=== PATIENT | female | born 1970 | race Two or more races ===

== ENCOUNTER 2020-11-15 09:27 | Day surgery (SDC) | payer BC, SELFPAY ==
--- NOTE | 2020-11-14 12:26 | HP.PCM_ITS ---
History and Physical Date of Admission: 11/15/20 Judy Mo MD Physician Specialty: FLASHER ADJUSTER H&P ? Signed Encounter Date: 11/09/2020 Expand AllCollapse All Expand All by Default Hide copied text Hover for details Pre-Op History and Physical- virtual visit on zoom platform. ? HPI: The patient is a 50 year old female presenting for discussion of abnormal uterine bleeding. Patient had an endometrial biopsy which was benign. Previously patient stated she would like to proceed with a hysteroscopy, D&C, endometrial ablation but today is now considering other options. Patient is considering a Mirena IUD versus the ablation versus canceling her surgery and performing a hysterectomy. Patient had multiple questions today that were answered to the best of my ability. We reviewed Ultrasound findings- likely adenomyosis and thickened cystic endometrium. EMB sample Benign. At this time decision was that we will keep her on the schedule and she will notify me of how she would like to proceed from here on out. ? She is scheduled for Hysteroscopy D&C, Possible asaf ablation possible mirena IUD insertion on 11/15/20. Procedure discussed along with risks, benefits and complications. Other alternatives discussed for management. Consent form signed? No. Will sign day of surgery. ? ? PAST MEDICAL HISTORY PAST MEDICAL HISTORY Diagnosis Date ? Varicose veins of other sites 2005 ? s/p laser ablation in [place] ? Vitamin D deficiency ? ? takes MVI- Centrum kids( cannot tolerate oral iron( ? ? PAST SURGICAL HISTORY PAST SURGICAL HISTORY Procedure Laterality Date ? PAST SURGICAL HISTORY OF ? 08/2005 ? endovascular ablation RLE ? ? ? CURRENT MEDICATIONS Current Outpatient Medications Medication Sig Dispense Refill ? norethindrone (AYGESTIN) 5 mg tablet Take 1 tab PO TID until bleeding stops then take 1 tab BID x 3 days then daily x 7 days. 30 tablet 0 ? estradiol 10 mcg vaginal suppository starter pack (IMVEXXY) Insert one insert (10 mcg) vaginally once daily during Weeks 1 and 2, THEN twice weekly during Week 3 and thereafter 18 Suppository 0 ? estradiol (IMVEXXY MAINTENANCE PACK) 10 mcg inst Use 1 Suppository vaginally two times a week. 1 Box 5 ? iv contrast (will be provided with radiology test) CT ABD/PEL -Inject, intravenously, once for 1 dose.No IV access, insert saline lock prior to the beginning of sedation, infusion, injection of imaging exam. Discontinue saline lock post exam. If Pt. has a central line or IVAD, may access for administration according to line specific nursing protocol. Once exam is complete flush line and de-access according to line specific nursing protocol in the CT contrast administration guidelines link. 1 Each 0 ? enteric contrast (will be provided with radiology test) For CT ABD/PEL W IVCON Routine order Administer, As Directed One Time Only, via Oral, Rectal, both Oral and Rectal, Enteric Tube, Stoma or Indwelling Catheter, Enteric Contrast as designated per enteric contrast guidelines 1 Each 0 ? sod picosulf-mag ox-citric ac (CLENPIQ) 10 mg-3.5 gram -12 gram/160 mL soln Take 1 Package by mouth as directed. Take as directed per instruction sheet 1 Bottle 0 ? [id number] TAB Take by mouth. With iron ? ? 0 ? miscellaneous medical supply(COMPRESSION STOCKINGS) 20-30 mmHg knee high, wear as directed 4 4 ? No current facility-administered medications for this visit. ? ? ALLERGIES: Patient has no known allergies. ? PERSONAL HISTORY: SOCIAL HISTORY Social History ? Tobacco Use ? Smoking status: Never Smoker ? Smokeless tobacco: Never Used Substance Use Topics ? Alcohol use: No ? Drug use: No ? FAMILY HISTORY: FAMILY HISTORY FAMILY HISTORY Problem Relation Age of Onset ? other (cancer lung [Other]) Father ? ? d age 46- small cell ca- non smoker ? other (healthy [Other]) Mother ? ? age 67 ? Breast Cancer Other ? ? paternal cousin ? ? REVIEW OF SYMPTOMS: Daily uterine cramping- persistent since EMB. PHYSICAL EXAMINATION: ? VITALS: Last menstrual period 09/03/2020. ? GENERAL: The patient is well nourished, well hydrated in no acute distress. , The patient is oriented to time, place, and person. NECK: full range of motion Neuro: Alert and oriented x 3 ? IMPRESSION: AUB, suspect adenomyosis ? PLAN: Hysteroscopy, D&C, possible Endometrial Ablation, Possible Mirena IUD insertion. ? Pt has been counseled on risks/benefits and alternatives of surgery including but not limited to anesthesia, bleeding, infection, uterine perforation with subsequent injury to pelvic structures including bowel, bladder, ureters and vessels. Pt wishes to proceed with surgery at this time. ? COVID Vaccinated MIRENA REFERRAL placed in case she decides to proceed with Mirena insertion at time of surgery All questions were answered to the best of my ability- will await message from patient. ? I have reviewed and updated past medical and surgical history, medications and allergies Judy Mo MD ?4:36 PM [facility] on 11/09/2020 [facility] on 11/09/2020 Note shared with patient
[2020-11-15] MEDS: Lactated Ringers 1,000 ML 100 ML IV (09:45)
[2020-11-15 09:54] LABS: Internal QC Validated? YES +Cl - CLEAR BKGD; Pregnancy, Urine Negative Negative
[2020-11-15 10:07] VITALS: BP 121/72; PULSE 69; RESP 16; TEMP 36.1; O2SAT 96; BMI 26.3
[2020-11-15 10:23] LABS: Hemoglobin 11.5 g/dL (12.0-15.0); Mean Corp Hgb Conc 32.9 g/dL (32-36); Mean Corpuscular Volume 85.4 fL (81-99); Mean Platelet Vol. 8.7 fl (6.2-12.0); Platelet Count 388 K/mm3 (150-450); RBC Distribution Width CV 14.6 % (11.6-14.6); RBC Distribution Width SD 45.3 fl (35.1-43.9); White Blood Count 6.7 K/mm3 (4.4-11.0)
[2020-11-15 10:25] LABS: Scan Indicated on CBC? Y/N NO
--- NOTE | 2020-11-15 10:55 | EMB_PTH ---
PATIENT: JAMILA WASSERMAN LOC: [facility] – [place] U#:[id number] AGE/SX: 50/F ROOM: RE11/15/[address]: Dr. Judy Sawyer, MDDOB: 1970 BED: DIS: 11/15/2020 SPEC #: [id number] RECD: 11/15/20 12:44 STATUS: FLOYD MYRNA #: [id number] NOBLE: 11/15/20 10:[address]: Judy Sawyer DEPT: SURGICAL PATHOLOGY RECD BY: Ruthann Hall ENTERED: 11/15/20 13:08 SP TYPE: ENDOM BX/C GARY DR: No Primary Care Phys Tissues: Endometrium, NOS Procedures: Surgery Specimen Level IV HEADER OPERATION: Hysteroscopy, dilation and curettage, IUD insertion PRE-OP DIAGNOSIS: AUB, suspect adenomyosis TISSUE SUBMITTED: Endometrial curettings MICROSCOPIC DIAGNOSIS Endometrium, curettings: Weakly proliferative to inactive endometrium with mild disorder. Fragments of endocervix with squamous metaplasia. Detached fragments of benign squamous mucosa. AM:josselyn 11/16/2020 MICROSCOPIC DESCRIPTION Slides are reviewed. GROSS DESCRIPTION Received in fixative is one container labeled with the patient's name and designated endometrial curettings. The specimen consists of multiple irregular fragments of red-carrero soft tissue that in aggregate measure 3 x 1.5 x 0.1 cm. The specimen is totally submitted in one cassette. / AM:josselyn 11/15/20 TC:5 CPT: 34105
--- NOTE | 2020-11-15 11:16 | OP.PCM_ITS ---
Report of Operation Date of Procedure: 11/15/20 Pre-Operative Diagnosis: AUB Post-Operative Diagnosis: same Surgery/Procedure Performed:: Hysteroscopy, D&C, Mirena IUD insertion Description of Surgical Findings:: Both tubal ostial visualized- minimal endometrial tissue, No masses Surgeon: Judy Sawyer Type of Anesthesia: MAC Special Medications: none Specimen's removed: endometrial curettings Drains: none Estimated Blood Loss (mL): <5cc Fluids Replaced: 500 Description of Procedure: Informed consent was obtained the patient was taken the operating room she was placed in supine position. She was given anesthesia. She was then placed in the [facility] where she was prepped and draped in the normal sterile fashion. bladder drained. At this time the weighted speculum was placed in the posterior fornix of vagina. Single-tooth tenaculum was used to gently grasp the anterior lip the cervix. At this time the uterine cavity was sounded to approximately 8 cm. Gentle dilatation was performed once adequate dilatation of the cervix was achieved the hysteroscope using normal saline as a distention medium was placed. Tubal ostia visualized, endometrium appeared normal with minimal tissue present, no masses. This time hysteroscopy was complete. gentle sharp curettage performed- minimal tissue expelled. Tissue will be sent to pathology for evaluation. Mirena IUD device opened and inserted at uterine fundus without difficulty. Strings cut to 2.5cm from OS. Tenaculum removed. Good hemostasis. Instrument, lap count correct x 2. Vaginal Sweep was negative. Grafts/Implants Used: Mirena IUD Procedure Start Time: 11:13 Procedure Stop Time: 11:16 Complications none Admit VTE Documentation VTE Present on Admission: Yes VTE Mechan Device Prophylaxis: SCD's VTE Pharm Prophylaxis ordered?: No Reason prophylaxis not ordered:: Procedure Not Indicated
--- NOTE | 2020-11-15 11:20 | EX.PCM.DISCH ---
Discharge Instructions Procedure D&C Diet Discharge Diet: No restrictions Activity May resume sexual activity in: 1 week Dressing / Incision Call your doctor if you observe: Fever of 101 or Higher, Inability to urinate, Using more than 1 pad per hour and Uncontrolled pain Follow Up Care Please Follow Up With: Judy Sawyer MD When: 1-2 weeks post OP if you need an appointment please call [phone] Test Results: Test results from this visit will be discussed in further detail at your follow-up appointment, if applicable. Discharge Plan Admission Attending Provider: Judy Sawyer Primary Care Provider: Care Physician,No Primary Discharge Orders/Prescriptions Prescriptions: No Action norethindrone (contraceptive) 0.35 mg Tablet 0.35 mg PO DAILY RF: 0 Multi For Her 18 mg iron-600 mcg-40 mcg Capsule 1 tab-cap PO DAILY RF: 0
[2020-11-15 11:25] VITALS: BP 121/72; BP 97/65; PULSE 80; RESP 16; TEMP 36.3; O2SAT 99
[2020-11-15 11:30] VITALS: BP 101/65; BP 121/72; PULSE 79; RESP 16; O2SAT 99
[2020-11-15 11:35] VITALS: BP 102/67; BP 121/72; PULSE 76; RESP 16; O2SAT 98
[2020-11-15 11:40] VITALS: BP 108/69; BP 121/72; PULSE 67; RESP 16; TEMP 36.1; O2SAT 98
[2020-11-15 11:50] VITALS: BP 121/72
== END 2020-11-15 12:33 | disposition home or self-care (01) ==
LOC: SDC 09:35 → AC 09:36
PROVIDERS: Referring Provider Obstetrics & Gynecology; Visit Provider Obstetrics & Gynecology
PROC: 0UDB8ZZ Extraction of Endometrium, Via Natural or Artificial Opening Endoscopic (ICD-10-PCS; CPT 58558; principal; 2020-11-15 10:45)
DX: N93.9 Abnormal uterine and vaginal bleeding, unspecified (principal); Z30.430 Encounter for insertion of intrauterine contraceptive device
CPT/HCPCS: 58300; 58558; 81025; 85027; 88305; J7120; J2405